=== PATIENT | male | born 1950 | race Caucasian/White ===

== ENCOUNTER 2018-05-15 10:49 | Outpatient (CLI) | payer MEDICARE ==
--- NOTE | 2018-05-15 14:28 | RAD ---
RIGHT SHOULDER THREE VIEWS: 05/15/18 HISTORY: Right shoulder pain. FINDINGS: Acromioclavicular and glenohumeral alignment are maintained with very mild osteophytosis. No acute fr acture, dislocation or aggressive osseous erosions. IMPRESSION: No acute osseous abnormalities are demonstrated. POS: NAHOMY
== END 2018-05-15 10:50 | disposition home or self-care (01) ==
LOC: MADRAD 10:49
PROVIDERS: ATTEND Family Medicine
DX: M25.511 Pain in right shoulder (principal); M89.8X1 Other specified disorders of bone, shoulder

== ENCOUNTER 2022-09-02 09:05 | Outpatient (CLI) | payer MEDICARE, OTHER | END 2022-09-02 09:06 | disposition home or self-care (01) | LOC: MADULT 09:05 | PROVIDERS: ATTEND Family Medicine | DX: K76.89 Other specified diseases of liver (principal); I10 Essential (primary) hypertension; K80.20 Calculus of gallbladder without cholecystitis without obstruction; K76.0 Fatty (change of) liver, not elsewhere classified | CPT/HCPCS: 76705 ==

== ENCOUNTER 2023-11-21 09:57 | Emergency (ER) | payer OTHER | END 2023-11-21 10:26 | disposition home or self-care (01) | LOC: MADERS 09:57 | DX: I83.892 Varicose veins of left lower extremity with other complications (principal); I10 Essential (primary) hypertension | CPT/HCPCS: 99283 ==